=== PATIENT | male | born 1990 | race Caucasian/White ===

== ENCOUNTER 2021-11-27 17:14 | Emergency (ER) | payer BC, SELFPAY ==
[2021-11-27 17:24] VITALS: BP 105/66; PULSE 87; RESP 16; TEMP 37.1; O2SAT 96
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
[2021-11-27 18:09] VITALS: RESP 16; O2SAT 99
[2021-11-27] MEDS: morphine 4 mg/mL SDV 1 mL IVP (18:09)
[2021-11-27 18:10] VITALS: RESP 16; O2SAT 99
[2021-11-27] MEDS: HYDROmorphone 1 mg/mL INJ 1 mL 0.5 MG IVP (18:10)
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
[2021-11-27 20:30] VITALS: RESP 18
[2021-11-27] MEDS: oxyCODONE-APAP 5-325 mg Tablet 1 TAB PO (20:30)
[2021-11-27] MEDS: tetanus-dipt-pertussis 0.5 mL SDV IM (20:30)
[2021-11-27 21:47] VITALS: BP 110/69; PULSE 75; RESP 18; TEMP 36.8; O2SAT 97
--- NOTE | 2021-11-30 12:17 | DCPLANNER ---
Addendum entered by Arminda Nair 12/13/21 17:20: Patient had a follow up appointment scheduled for 11.29.[address] Zafar at ortho - patient did attend appointment. Original Note: stakeholder manager had message to schedule a follow up appointment for patient with ortho. stakeholder manager sent patients information to the front office staff at ortho. Patients information will be printed and reviewed. Clinic will call patient with appointment information.
== END 2021-11-27 22:08 | disposition home or self-care (01) ==
PROVIDERS: Emergency Provider Emergency Medicine
DX: S92.001A Unspecified fracture of right calcaneus, initial encounter for closed fracture (principal); V29.9XXA Motorcycle rider (driver) (passenger) injured in unspecified traffic accident, initial encounter; Z23 Encounter for immunization
CPT/HCPCS: 70450; 71250; 72125; 73610; 73620; 73700; 74176; 90471; 90715; 96374; 96375; 99285; E0114; J1170; J2270

== ENCOUNTER 2021-11-29 11:15 | Outpatient (CLI) | payer BC, SELFPAY | END 2021-11-29 11:16 | disposition home or self-care (01) | LOC: SPT 11:16 | PROVIDERS: Visit Provider Podiatrist Foot & Ankle Surgery | DX: Z46.89 Encounter for fitting and adjustment of other specified devices (principal); S92.001D Unspecified fracture of right calcaneus, subsequent encounter for fracture with routine healing; X58.XXXD Exposure to other specified factors, subsequent encounter | CPT/HCPCS: 97760; L4361 ==

== ENCOUNTER → 2021-12-13 15:16 | Outpatient (BNVA) | payer BC, SELFPAY | PROVIDERS: Visit Provider Podiatrist Foot & Ankle Surgery | DX: S92.001A Unspecified fracture of right calcaneus, initial encounter for closed fracture (principal); X58.XXXA Exposure to other specified factors, initial encounter | CPT/HCPCS: 73650 ==

== ENCOUNTER → 2022-01-03 11:41 | Outpatient (BNVA) | payer BC, SELFPAY | PROVIDERS: Visit Provider Podiatrist Foot & Ankle Surgery | DX: S92.001A Unspecified fracture of right calcaneus, initial encounter for closed fracture (principal); X58.XXXA Exposure to other specified factors, initial encounter | CPT/HCPCS: 73650 ==

== ENCOUNTER → 2022-01-19 11:03 | Outpatient (BNVA) | payer BC, SELFPAY | PROVIDERS: Visit Provider Podiatrist Foot & Ankle Surgery | DX: S92.044D Nondisplaced other fracture of tuberosity of right calcaneus, subsequent encounter for fracture with routine healing (principal); V86.6 Passenger of special all-terrain or other off-road motor vehicle injured in nontraffic accident | CPT/HCPCS: 73650 ==

== ENCOUNTER → 2022-02-07 09:56 | Outpatient (BNVA) | payer BC, SELFPAY | PROVIDERS: Visit Provider Podiatrist Foot & Ankle Surgery | DX: S92.001A Unspecified fracture of right calcaneus, initial encounter for closed fracture (principal); V86.66XA Passenger of dirt bike or motor/cross bike injured in nontraffic accident, initial encounter | CPT/HCPCS: 73650 ==